=== PATIENT | male | born 1955 | race Caucasian/White ===

== ENCOUNTER 2017-05-31 15:49 | Emergency (ER) | payer SELFPAY ==
--- NOTE | 2017-05-31 16:24 | ED.PDOC ---
History of Present Illness - General Chief Complaint: Cardiovascular Problem Time Seen by Provider: 05/31/17 15:53 Source: patient Exam Limitations: no limitations - History of Present Illness Initial Comments: Patient presents with swelling and discomfort just above the left scrotum. He said he noticed it yesterday. He says 4 days ago he was carrying a heavy air conditioner but he did not have pain immediately after. He felt his pulse today and thought it was going fast, however, he has not felt any palpitations. No previous episodes. No history of hernia. No other complaints. Timing/Duration: 24 hours Severity: mild Improving Factors: nothing Worsening Factors: nothing Associated Symptoms: denies symptoms Allergies/Adverse Reactions: Allergies NO KNOWN ALLERGY Allergy (Verified 05/31/17 16:48) Review of Systems - Review of Systems Constitutional: States: no symptoms reported EENTM: States: no symptoms reported Respiratory: States: no symptoms reported Cardiology: States: no symptoms reported Gastrointestinal/Abdominal: States: no symptoms reported Genitourinary: States: see HPI Musculoskeletal: States: no symptoms reported Skin: States: no symptoms reported Neurological: States: no symptoms reported Endocrine: States: no symptoms reported Hematologic/Lymphatic: States: no symptoms reported Family Medical History - Family History Mother Family History: No Known Physical Exam - Physical Exam General Appearance: Alert Respiratory: lungs clear Cardiovascular/Chest: regular rate, rhythm Gastrointestinal/Abdominal: normal bowel sounds, non tender, soft Comments: Exam of the scrotum showed no swelling. There was no palpable hernia in the scrotum. Testicles were NTTP. Progress - Progress Progress: 05/31/17 17:36 U/S of scrotum showed small right epididymal cyst. No hernia. No testicular torsion. Departure - Departure Clinical Impression: Groin cyst Disposition: Discharge to Home or Self Care Condition: Good Departure Forms: ED Discharge - Pt. Copy, Patient Portal Self Enrollment Diet: resume usual diet Activity: increase activity as tolerated Additional Instructions: Follow up with your regular doctor next week if the discomfort continues.
[2017-05-31 16:31] VITALS: TEMP 98.3
--- NOTE | 2017-05-31 17:32 | US ---
EXAM DESCRIPTION: Testicular CLINICAL HISTORY: left inguinal pain COMPARISON: None. TECHNIQUE: Routine sonographic imaging of the scrotum and contents was performed. FINDINGS: Testes: Normal in size and echotexture, without focal lesion. Normal color Doppler flow pattern. Right testes size: 5.37 x 4.17 x 1.9 cm Left testes size: 4.44 x 3.48 x 3.55 cm Epididymides: A right epididymal head cyst is observed measuring 1.03 x 0.69 x 0.55 cm Normal color Doppler flow pattern. Hydrocele: Small bilateral Varicocele: None Other findings: Sonography of the left groin is unremarkable. No evidence of a hernia is seen. IMPRESSION: The testicles are normal. A right epididymal head cyst is identified. Electronically signed by: Reymundo Lauren MD 05/31/2017 5:30 PM CDT
[2017-05-31 18:03] VITALS: BP 143/89; O2SAT 97
== END 2017-05-31 17:50 | disposition home or self-care (01) ==
LOC: ER 15:49
DX: N50.3 Cyst of epididymis (principal)

== ENCOUNTER → 2017-08-07 | Outpatient (CLI) | payer SELFPAY | END | disposition home or self-care (01) | LOC: YCFC.O 12:50 | PROVIDERS: ATTEND Nurse Practitioner Family | DX: Z12.5 Encounter for screening for malignant neoplasm of prostate (principal); I10 Essential (primary) hypertension; Z13.220 Encounter for screening for lipoid disorders ==